=== PATIENT | female | born 1940 | race Caucasian/White ===

== ENCOUNTER → 2016-10-10 08:14 | Outpatient (CLI) | payer MEDICARE ==
[2015-05-13 11:01] VITALS: BMI 25.7
[~2016-10-10 08:14] MED LIST: ALDACTONE50 MG PO; ALLI60 MG PO; AMBIEN10 MG PO; COZAAR50 MG PO; CRESTOR5 MG PO; EFFEXOR75 MG PO; ELIQUIS2.5 MG PO; HYDROCHLOROTHIA25 MG PO; LASIX20 MG PO; MIRALAX527 GM PO; MS CONTIN15 MG PO; OMEGA-3100 MG PO; OXYCODONE HCL5 MG PO; POTASSIUM99 M1 PO; PROZAC10 MG PO; REMERON15 MG/UDTA PO; WELLBUTRIN100 MG PO
== END | disposition home or self-care (01) ==
LOC: D.MRI 08:14
DX: M47.12 Other spondylosis with myelopathy, cervical region (principal)

== ENCOUNTER 2016-11-08 07:03 | Inpatient (IN) | payer MEDICARE ==
[~2016-11-08] VITALS: Ht 162.6 cm; Wt 72.6 kg
[2016-11-08] VITALS (8 sets, daily range): BP systolic 100–137; BP diastolic 58–80; Ht 162.6 cm; Wt 72.6 kg
[2016-11-08 08:09] LABS: BASOPHILS 0.3 % (0-2); EOSINOPHILS 2.3 % (0-7); HEMATOCRIT 40.1 % (36.0-48.0); HEMOGLOBIN 13.6 g/dL (12-16); IMMATURE GRANULOCYTES 0.1 % (0-5); LYMPHOCYTES 27.1 % (15-50); MCH 31.7 pg (26.0-34.0); MCHC 33.9 g/dL (31.0-37.0); MCV 93.5 fL (80.0-100.0); MEAN PLATELET VOLUME 9.1 fL (7.4-10.4); MONOCYTES 10.3 % (2-11); NEUTROPHILS 59.9 % (40-80); PLATELET COUNT 224 10x3/uL (130-400); RBC 4.29 10x6/uL (4.00-5.40); RDW 12.6 % (11.5-14.5); WBC 6.8 10x3/uL (4.8-10.8)
[2016-11-08 08:15] LABS: CALC OSMOLALITY 281 mosm/kg (275-300); CALCIUM 8.9 mg/dL (8.5-10.1); CARBON DIOXIDE 28.2 mmol/L (21.0-32.0); CHLORIDE - SERUM 103 mmol/L (98-107); CREATININE - SERUM 0.7 mg/dL (0.6-1.3); GLUCOSE 110 mg/dL (74-106); POTASSIUM - SERUM 3.7 mmol/L (3.5-5.1); SODIUM 140 mmol/L (136-145); UREA NITROGEN 17 mg/dL (7-18); eGFR NON AFRICAN AMERICAN 86 mL/min (90-120)
[2016-11-08] MEDS ORDERED: PROZAC10 MG PO (08:19)
[2016-11-08] MEDS ORDERED: ACETAMINOPHEN325 MG PO (08:20)
[2016-11-08 08:26] LABS: APTT 27.9 SECONDS (22.8-39.4); INR 0.98 (0.85-1.17); PROTIME 12.8 SECONDS (11.6-15.0)
--- NOTE | 2016-11-08 14:00 | NUR ---
PATIENT RECEIVED TO FLOOR FROM PACU VIA BED. NO SIGNS OF DISTRESS NOTED. VITAL SIGNS STABLE. DENIES PAIN, BUT STATES NECK FEELS STIFF. ORIENTED TO ROOM AND CALL LIGHT SYSTEM. STATES UNDERSTANDING. OMA GIRARD RN PACU NURSE STATES DR ALVAREZ SAID PATIENT DID NOT NEED SOFT CERVICAL COLLAR. DRESSING TO NECK CLEAN, DRY AND INTACT. SIDE RAILS UP X2. BED IN LOW POSITION. CALL LIGHT IN REACH.
--- NOTE | 2016-11-08 14:00 | NUR ---
PT ADMITTED FROM PACU WITH NO POST OP ORDERS. DR ALVAREZ BEEPED PER PACU
--- NOTE | 2016-11-08 18:00 | NUR ---
PATIENT ALERT IN BED. NO SIGNS OF DISTRESS NOTED. VITAL SIGNS STABLE. SCHEDULED MEDICATION ADMINISTERED. DENIES PAIN. SCDS ON BILATERALLY. SIDE RAILS UP X2. BED IN LOW POSITION. CALL LIGHT IN REACH.
--- NOTE | 2016-11-08 20:00 | NUR ---
RECIEVED SHIFT REPORT. PT IS LYING IN BED. ALERT AND ORIENTED AND ABLE TO VERBALIZE NEEDS. IV IS PATENT AND SALINE LOC AT THIS TIME. SCD'S OFF AT THIS TIME. PT IS AMBULATORY BUT WAS INSTRUCTED TO CALL FOR ANY ASSISTANCE NEEDED. PT STATES PAIN IS 1/0. DRESSING TO RIGHT NECK C/D/I. NO NEEDS ARE VERBALIZED AT THIS TIME. WILL CONTINUE TO MONITOR. SIDE RAILS ARE UP X 2. BED IS IN LOWEST POSITION. CALL LIGHT IS WITHIN REACH.
--- NOTE | 2016-11-08 22:37 | NUR ---
SHIFT ASSESSMENT COMPLETED. NIGHT MEDS GIVEN WITH NO PROBLEMS. PT C/O PAIN 06/03. ADMINISTERED PRESCRIBED PRN NORCO PER ORDER. NO FURTHER NEEDS VOICED. WILL MONITOR. SIDE RAILS X 2. BED LOW. CALL LIGHT IN REACH.
--- NOTE | 2016-11-09 07:37 | NUR ---
SLEEPING AT THIS TIME WITH RESPIRATIONS EVEN AND NON LABORED. CALL LIGHT IN REACH AND BED IN LOWEST POSITION. WILL CONTINUE WITH PLAN OF CARE.
--- NOTE | 2016-11-09 08:50 | NUR ---
SCHEDULED MEDICATIONS ADMINISTERED AT THIS TIME PER ORDER. DRESSING TO NECK REMAINS C/D/I. DENIES NEED FOR PAIN MEDICATION. ANTICIPATING D/C TODAY. CALL LIGHT IN REACH, WILL CONTINUE WITH PLAN OF CARE.
--- NOTE | 2016-11-09 11:26 | NUR ---
PRN ROBAXIN ADMINISTERED FOR MUSCLE STIFFNESS IN THE NECK. DENIES NEED FOR PAIN MEDICATION. NO OTHER NEEDS VOICED, CALL LIGHT IN REACH. WILL CONTINUE WITH PLAN OF CARE.
--- NOTE | 2016-11-09 11:44 | NUR ---
CM met with patient to assess discharge planning needs. Patient lives home alone independently in [facility] where she plans to return to. Her friends Brown Donato will be driving her home. 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 She has a CPAP machine at home, but does not use. There are 3 steps to enter in her home, but she does not have any trouble with them. CM offered HH, but she does not want it. CM will continue to follow and assist as needed. PCP: Neri Rubio on [address] [place]- [phone]
[2016-11-09] MEDS ORDERED: ROBAXIN-750750 MG PO (14:32)
[2016-11-09] MEDS ORDERED: MEDROL DOSE PACK4 MG PO (14:32)
--- NOTE | 2016-11-09 14:55 | NUR ---
DISCHARGE PAPERWORK REVIEWED WITH PT AND IV TO RIGHT HAND D/C WITH CATH TIP INTACT.
== END 2016-11-09 15:34 | disposition home or self-care (01) | DRG 30 ==
LOC: D.MS 07:03 → D.SDCHOLD 07:03 → D.MS 13:54
PROVIDERS: Anesthesiology; ADMIT Neurological Surgery
PROC: 0RG10A0 Fusion of Cervical Vertebral Joint with Interbody Fusion Device, Anterior Approach, Anterior Column, Open Approach (ICD-10-PCS; principal; 2016-11-08 09:00)
PROC: 0RB30ZZ Excision of Cervical Vertebral Disc, Open Approach (ICD-10-PCS; 2016-11-08 09:00)
DX: M54.12 Radiculopathy, cervical region (principal)

== ENCOUNTER 2017-02-21 07:35 | Day surgery (SDC) | payer MEDICARE ==
[~2017-02-21] VITALS: Ht 162.6 cm; Wt 72.6 kg
[~2017-02-21 07:35] MED LIST changes: +ACETAMINOPHEN325 MG PO; +ASPIRIN EC325 M1 PO; +MEDROL DOSE PACK4 MG PO; +REMERON15 MG PO; +ROBAXIN-750750 MG PO
[2017-02-21 08:21] LABS: BASOPHILS 0.3 % (0-2); EOSINOPHILS 3.3 % (0-7); HEMATOCRIT 41.3 % (36.0-48.0); HEMOGLOBIN 13.9 g/dL (12-16); IMMATURE GRANULOCYTES 0.1 % (0-5); MCHC 33.7 g/dL (31.0-37.0); MCV 95.2 fL (80.0-100.0); MEAN PLATELET VOLUME 9.1 fL (7.4-10.4); MONOCYTES 10.1 % (2-11); NEUTROPHILS 56.2 % (40-80); PLATELET COUNT 255 10x3/uL (130-400); RBC 4.34 10x6/uL (4.00-5.40); RDW 12.6 % (11.5-14.5); WBC 7.2 10x3/uL (4.8-10.8)
[2017-02-21 08:34] LABS: APTT 28.4 SECONDS (22.8-39.4); INR 0.97 (0.85-1.17); PROTIME 12.7 SECONDS (11.6-15.0)
[2017-02-21 08:39] VITALS: Ht 162.6 cm; Wt 72.6 kg
[2017-02-21 08:39] LABS: CALC OSMOLALITY 280 mosm/kg (275-300); CALCIUM 9.4 mg/dL (8.5-10.1); CARBON DIOXIDE 28.7 mmol/L (21.0-32.0); CHLORIDE - SERUM 103 mmol/L (98-107); CREATININE - SERUM 0.7 mg/dL (0.6-1.3); GLUCOSE 102 mg/dL (74-106); POTASSIUM - SERUM 3.9 mmol/L (3.5-5.1); SODIUM 140 mmol/L (136-145); UREA NITROGEN 17 mg/dL (7-18); eGFR NON AFRICAN AMERICAN 86 mL/min (90-120)
[2017-02-21] MEDS ORDERED: DURICEF500 MG PO (12:03)
[2017-02-21] MEDS ORDERED: HYDROCODON-ACE1 EAC7 PO (12:03)
--- NOTE | 2017-02-21 13:19 | NUR ---
IV DC WITH CATHER TIP INTACT
--- NOTE | 2017-02-21 14:32 | NUR ---
[id number] STILL WAITING ON RIDE
--- NOTE | 2017-02-23 07:43 | OP ---
PATIENT NAME: CHIQUIS KATHLEEN MEDICAL RECORD: [id number] :41 LOCATION:[facility] ADMISSION DATE: SURGEON: DEEP SPARKS DO DATE OF OPERATION: 02/21/2017 PROCEDURE PERFORMED: Left endoscopic carpal tunnel release. PREOPERATIVE DIAGNOSIS: Left carpal tunnel syndrome. POSTOPERATIVE DIAGNOSIS: Left carpal tunnel syndrome. INDICATIONS: Ms. Kathleen is a 76-year-old female who has had carpal tunnel syndrome for quite some time. She even had it on the right, but had it released 7 years ago, which has recurred and the left hand was going numb and she is tired of dealing with the pain and wanted something done. She also had pain all the way down her arm. After EMG and nerve conduction study was done, she had her neck checked out and had an ACDF done. After this, she continued to have carpal tunnel symptoms in her left hand, right hand. As the nerve conduction study was quite positive for carpal tunnel syndrome, she decided to have a carpal tunnel release of the left arm, which she decided to do first since it had not been done prior and we do it endoscopically. Discussion was had with her and she decided to have it done. DESCRIPTION OF PROCEDURE: The patient was taken to the operative suite, laid in supine position, given general anesthetic, given a gram of Ancef preoperatively. Timeout was performed. Everyone was in agreement with the correct, side, site, and patient. Once this was done, the left arm was prepped and draped in sterile fashion. Tourniquet was placed above the elbow. After it was prepped and draped, an Esmarch was used to exsanguinate the left upper extremity and tourniquet was inflated and had been inflated for 10 minutes during the procedure. After the tourniquet had been inflated, an incision was made just over the palmaris longus tendon and to proximal wrist crease and the skin was incised with a #15 blade. Blunt dissection was made down to the carpal tunnel itself with Ragnells and the carpal tunnel was entered. Once this was done, the proximal forearm fascia was released with scissors and then the carpal tunnel itself was entered with the dilators, dilated up, and then measured to a depth of about a 3. The sheath was then entered into the carpal tunnel itself and the camera was entered in noting that the only thing visible was the transverse carpal ligament and there was no nerve in the way. Probe was then used to ensure the transverse carpal ligament and a rasp was used to clean it off. Once this was done, the knife was entered in a retrograde fashion and the transverse carpal ligament was released sparing the proximal most millimeters and fat herniated down into the carpal tunnel, indicating good release of the transverse carpal ligament. Then, the sheath and camera removed and the remainder of the transverse carpal ligament was with the scissors. A Anayeli retractor, the longer end, was placed in into the carpal tunnel and viewed correctly with loupe magnification and the transverse carpal ligament was seen to be incised completely. There were no bands and it was fully released. Once this was done, the tourniquet was let down and any bleeding was coagulated with the bipolar and then the incision was closed with 5-0 Monocryl in inverted interrupted fashion. A Steri-Strip was placed over it and 5 mL of 0.5% Marcaine was used to inject around the incision site as well as into the palm where the transverse carpal ligament had been severed. The dressing was placed on the patient of Adaptic, 4 x 4s, Kerlix and a Coban was lightly wrapped over the hand. The patient was awakened and taken to recovery in stable condition. OPERATIVE REPORT [id number] CHIQUIS KATHLEEN BLOOD LOSS: Minimal. TOURNIQUET TIME: 10 minutes. TRANSINT:[id number] Voice Confirmation ID: [id number] DOCUMENT ID: [id number] DEEP SPARKS DO at 0743 CC: [id number] DICTATION DATE: 02/21/17 1214 TELECOM FIELD TECHNICIAN: 02/21/17 1425 [facility] 02/21/17 [facility] [address] [id number]
== END 2017-02-21 14:00 | disposition home or self-care (01) ==
LOC: D.OPS 07:35 → D.PAN 09:30 → D.OPS 09:45
PROVIDERS: Anesthesiology
DX: G56.02 Carpal tunnel syndrome, left upper limb (principal); I10 Essential (primary) hypertension; K21.9 Gastro-esophageal reflux disease without esophagitis; Z87.891 Personal history of nicotine dependence; Z01.812 Encounter for preprocedural laboratory examination

== ENCOUNTER 2017-09-03 16:27 | Emergency (ER) | payer MEDICARE ==
[~2017-09-03] VITALS: Ht 162.6 cm; Wt 68.2 kg
[~2017-09-03 16:27] MED LIST changes: +DURICEF500 MG PO; +HYDROCODON-ACE1 EAC7 PO
[2017-09-03 16:30] VITALS: Ht 162.6 cm; Wt 68.2 kg
[2017-09-03] MEDS ORDERED: LIPITOR10 MG PO (16:35)
[2017-09-03 18:17] VITALS: BP 146/57
[2017-10-10] MEDS ORDERED: ZANAFLEX2 M1 PO (09:34)
[2017-10-10] MEDS ORDERED: [UNRECOGNIZED DRUG - OTHER] (09:37)
[2017-10-11] MEDS ORDERED: PROZAC10 MG PO (10:24)
[2017-10-11] MEDS ORDERED: HYDROCODON-ACE1 EAC7 PO (11:05)
== END 2017-09-03 18:18 | disposition home or self-care (01) ==
LOC: D.ER 16:27
DX: S01.01XA Laceration without foreign body of scalp, initial encounter (principal); W19.XXXA Unspecified fall, initial encounter; Y93.89 Activity, other specified; Y92.019 Unspecified place in single-family (private) house as the place of occurrence of the external cause; S00.03XA Contusion of scalp, initial encounter; I10 Essential (primary) hypertension; Z86.73 Personal history of transient ischemic attack (TIA), and cerebral infarction without residual deficits

== ENCOUNTER → 2017-10-10 08:37 | Outpatient (CLI) | payer MEDICARE ==
[2017-09-03 16:30] VITALS: BMI 25.8
[~2017-10-10 08:37] MED LIST changes: +LIPITOR10 MG PO; +ZANAFLEX2 M1 PO; +[UNRECOGNIZED DRUG - OTHER]
== END | disposition home or self-care (01) ==
LOC: D.LAB 09-28 14:47
DX: G12.20 Motor neuron disease, unspecified (principal)

== ENCOUNTER 2017-10-11 16:32 | Day surgery (SDC) | payer MEDICARE ==
[2017-10-10 06:11] LABS: BASOPHILS 0.1 % (0-2); EOSINOPHILS 0.1 % (0-7); HEMATOCRIT 34.7 % (36.0-48.0); HEMOGLOBIN 11.6 g/dL (12-16); IMMATURE GRANULOCYTES 0.4 % (0-5); LYMPHOCYTES 6.3 % (15-50); MCH 28.1 pg (26.0-34.0); MCHC 33.4 g/dL (31.0-37.0); MEAN PLATELET VOLUME 11.1 fL (7.4-10.4); MONOCYTES 5.2 % (2-11); NEUTROPHILS 87.9 % (40-80); RBC 4.13 10x6/uL (4.00-5.40); RDW 13.8 % (11.5-14.5); WBC 7.4 10x3/uL (4.8-10.8)
[2017-10-10 06:48] LABS: PLATELET COUNT 120 10x3/uL (130-400)
[~2017-10-11] VITALS: Ht 162.6 cm; Wt 67.1 kg
[2017-10-11 10:12] LABS: CALC OSMOLALITY 281 mosm/kg (275-300); CARBON DIOXIDE 23.4 mmol/L (21.0-32.0); CHLORIDE - SERUM 104 mmol/L (98-107); CREATININE - SERUM 0.6 mg/dL (0.6-1.3); GLUCOSE 97 mg/dL (74-106); POTASSIUM - SERUM 4.3 mmol/L (3.5-5.1); SODIUM 142 mmol/L (136-145); UREA NITROGEN 11 mg/dL (7-18); eGFR NON AFRICAN AMERICAN > 90 mL/min (90-120)
[2017-10-11 10:26] VITALS: BP 126/64; Ht 162.6 cm; Wt 67.1 kg
== END 2017-10-11 16:33 | disposition home or self-care (01) ==
LOC: D.OPS 16:32
PROVIDERS: Anesthesiology
DX: G12.21 Amyotrophic lateral sclerosis (principal); Z01.812 Encounter for preprocedural laboratory examination